=== PATIENT | male | born 1940 | race Caucasian/White ===

== ENCOUNTER 2021-01-15 09:42 | Outpatient (CLI) | payer OTHER | END 2021-01-15 23:59 | disposition home or self-care (01) | LOC: VAS 09:42 | PROVIDERS: ATTEND Internal Medicine Nephrology | DX: N18.6 End stage renal disease (principal); Z99.2 Dependence on renal dialysis | CPT/HCPCS: 93931; 93971 ==

== ENCOUNTER 2021-05-16 08:28 | Day surgery (SDC) | payer OTHER ==
[~2021-05-16] VITALS: Ht 172.7 cm; Wt 66.7 kg
[2021-05-16] MEDS ORDERED: normal saline 1000ml 1,000 ML IV SCH (08:50)
[2021-05-16 09:29] LABS: BASOPHILS # (AUTO) 0.1 X10'3 (0-0.2); BASOPHILS % (AUTO) 0.8 % (0-1); EOSINOPHILS # (AUTO) 0.2 X10'3 (0-0.9); EOSINOPHILS % (AUTO) 3.3 % (0-6); HEMATOCRIT 29.7 % (42.0-52.0); HEMOGLOBIN 10.5 g/dl (14.0-17.9); LYMPHOCYTES # (AUTO) 0.8 X10'3 (1.1-4.8); LYMPHOCYTES % (AUTO) 11.6 % (21-51); MEAN CORPUSCULAR HEMOGLOBIN 34.5 PG (27.0-31.0); MEAN CORPUSCULAR HGB CONC 35.3 g/dL (33.0-36.5); MEAN CORPUSCULAR VOLUME 97.6 FL (78-98); MEAN PLATELET VOLUME 7.4 FL (7.4-10.4); MONOCYTES # (AUTO) 0.8 X10'3 (0-0.9); MONOCYTES % (AUTO) 11.8 % (2-12); NEUTROPHILS # (AUTO) 4.9 X10'3 (1.8-7.7); NEUTROPHILS % (AUTO) 72.5 % (42-75); PLATELET COUNT 200 X10'3 (140-440); RED BLOOD COUNT 3.05 X10'6 (4.70-6.10); RED CELL DISTRIBUTION WIDTH 15.5 % (11.5-14.5); WHITE BLOOD COUNT 6.7 X10'3 (4.5-11.0)
[2021-05-16 09:39] LABS: BLOOD UREA NITROGEN 27 MG/DL (7-18); BUN/CREATININE RATIO 7.7 (5.4-32.0); CHLORIDE 101 MMOL/L (99-107); GLUCOSE 104 MG/DL (70-104); POTASSIUM 4.3 MMOL/L (3.5-5.1); SODIUM 141 MMOL/L (135-145); eGFR 17 ML/MIN
[2021-05-16 09:50] LABS: ALBUMIN 4.2 G/DL (3.4-5.0); ANION GAP 9 (8-16); MAGNESIUM 2.4 MG/DL (1.5-2.4); TOTAL CARBON DIOXIDE 30.8 MMOL/L (24-32)
[2021-05-16 09:54] VITALS: BP 146/76
[2021-05-16] MEDS ORDERED: LIDOcaine 1%/PF 5ML 10 MG/ML VIAL ONE (09:54)
[2021-05-16] MEDS ORDERED: fentaNYL/PF 50MCG/1 ML 2ML syringe ONE ×2 (09:54→11:17)
[2021-05-16] MEDS ORDERED: heparin 1,000 UNITS/NS 500ml 500 ML ONE (09:54)
[2021-05-16] MEDS ORDERED: iohexol 300mg/ml 100ml inj. ONE (09:54)
[2021-05-16] MEDS ORDERED: midazolam 1 mg/ML 2ml injection ONE ×2 (09:54→11:20)
[2021-05-16] MEDS ORDERED: PHO667C PO (10:03)
[2021-05-16] MEDS ORDERED: ATOR40TA71 PO (10:03)
[2021-05-16] MEDS ORDERED: [UNRECOGNIZED DRUG - OTHER] PO (10:03)
[2021-05-16] MEDS ORDERED: METO-539 PO (10:03)
[2021-05-16] MEDS ORDERED: DOXE1CAP4 IV (10:03)
[2021-05-16] MEDS ORDERED: TERA2CAP4 PO (10:03)
[2021-05-16] MEDS ORDERED: FURO40TA4 PO (10:03)
[2021-05-16] MEDS ORDERED: VITA-268 PO (10:03)
[2021-05-16] MEDS ORDERED: PANT-47 PO (10:03)
[2021-05-16] MEDS ORDERED: [UNRECOGNIZED DRUG - CODE] IV (10:03)
[2021-05-16] MEDS ORDERED: heparin 1,000unit/ml 10ml vial 10 ML ONE (11:07)
[2021-05-16 11:54] VITALS: BP 162/77
[2021-05-16 12:00] VITALS: BP 162/75
[2021-05-16 12:15] VITALS: BP 152/77
[2021-05-16 12:30] VITALS: BP 132/69
[2021-05-16 12:45] VITALS: BP 117/60
== END 2021-05-16 13:00 | disposition home or self-care (01) ==
LOC: SSTAY O 08:28
PROVIDERS: ATTEND Radiology Vascular & Interventional Radiology
DX: T82.858A Stenosis of other vascular prosthetic devices, implants and grafts, initial encounter (principal); I12.0 Hypertensive chronic kidney disease with stage 5 chronic kidney disease or end stage renal disease; N18.6 End stage renal disease; E78.5 Hyperlipidemia, unspecified; N40.0 Benign prostatic hyperplasia without lower urinary tract symptoms; K21.9 Gastro-esophageal reflux disease without esophagitis; Z87.891 Personal history of nicotine dependence; Z79.899 Other long term (current) drug therapy; Y83.2 Surgical operation with anastomosis, bypass or graft as the cause of abnormal reaction of the patient, or of later complication, without mention of misadventure at the time of the procedure; Y92.89 Other specified places as the place of occurrence of the external cause
CPT/HCPCS: 36415; 36902; 76937; 80048; 83735; 85025; 85610; 99152; 99153; C1725; C1769; C1894; J1644; J2250; J3010; Q9967